=== PATIENT | male | born 1960 | race Caucasian/White ===

== ENCOUNTER 2018-11-22 10:43 | Emergency (ER) | payer OTHER ==
[~2018-11-22] VITALS: Ht 190.5 cm; Wt 99.3 kg
[2018-11-22 10:44] VITALS: BP 98/67
[2018-11-22] MEDS ORDERED: COREG6.25 MG PO (10:54)
[2018-11-22] MEDS ORDERED: SPIRONOLACTONE25 M1 PO (10:54)
[2018-11-22] MEDS ORDERED: ELIQUIS5 MG PO (10:54)
[2018-11-22] MEDS ORDERED: LISINOPRIL20 MG PO (10:55)
== END 2018-11-22 11:39 | disposition home or self-care (01) ==
LOC: ER 10:43
DX: S61.214A Laceration without foreign body of right ring finger without damage to nail, initial encounter (principal); W25.XXXA Contact with sharp glass, initial encounter; Y93.89 Activity, other specified; Y92.89 Other specified places as the place of occurrence of the external cause; Y99.8 Other external cause status

== ENCOUNTER → 2019-07-10 | Outpatient (CLI) | payer OTHER ==
[~2019-07-10] MED LIST: COREG6.25 MG PO; ELIQUIS5 MG PO; LISINOPRIL20 MG PO; SPIRONOLACTONE25 M1 PO
== END ==
LOC: SJCVCIMAG 09:14
DX: I42.0 Dilated cardiomyopathy (principal); I11.0 Hypertensive heart disease with heart failure; I50.20 Unspecified systolic (congestive) heart failure; I26.99 Other pulmonary embolism without acute cor pulmonale

== ENCOUNTER 2020-04-27 10:29 | Inpatient (IN) | payer OTHER ==
[~2020-04-27] VITALS: Ht 190.5 cm; Wt 66.4 kg
--- NOTE | ~2020-04-27 | EKG ---
[facility] Graham Braden [facility] [place] [address] ELECTROCARDIOGRAM REPORT Name: LOLA URIAS Room #: 217-P ADM IN M.R.#: [id number] Admission: 04/27/20 Attend Phys: Josue Coles MD Discharge: Date of : 60 Report #: [id number] THIS REPORT FOR: cc: Arnaud Barreto MD, Rene P. MD Epiphany, Epiphany MD ~ THIS REPORT FOR: //name// [facility] Test Date: 2020-04-27 Test Time: 23:17:13 Pat Name: LOLA URIAS Department: Room: 217 P Gender: M Blind Installer: WILLIAMS : 1960 Requested By: Josue Coles Order Number: [id number] MD: Measurements Intervals [place] Rate: 106 P: [place]: QRS: 43 QRSD: 161 T: -46 QT: 392 QTc: 521 Interpretive Statements Atrial flutter Left bundle branch block Compared to ECG 04/27/2020 11:07:43 Sinus tachycardia no longer present [email or web address] By: [id number] Epiphany Epiphany, /EPI
--- NOTE | ~2020-04-27 | EMS ---
[address] [address] EMS Patient Care Report Name: LOLA URIAS Room #: 217-P ADM IN M.R.#: [id number] Admission: 04/27/20 Attend Phys: Josue Coles MD Discharge: Date of : 60 Report #: [id number] THIS REPORT FOR: //name// Report Transmitted: 04/27/2020 23:55 EMS Care Summary [facility] MED-ACT Incident [id number] @ 04/27/2020 09:38 Incident Location [address] [place] [address] Patient LOLA URIAS Male, 60 Years 1960 Patient Address [address] [place] [address] Patient History Alcohol Abuse,Cardiomyopathy, Patient Allergies No known allergies, Patient Medications Eliquis, Sildenafil, Carvedilol, Chief Complaint Toe pain Disposition Transported No Lights/Tyrone Dispatch Reason Breathing Problem Transported To [facility] Narrative Medic 1152 responds to above address at a residential for C1 Breathing difficulty. Medic 1152 responds emergent without incident. Upon EMS arrival pt is found lying supine in bed being assessed and cared for [address] [address] EMS Patient Care Report Name: LOLA URIAS Room #: 217-P ADM IN Dominique#: [id number] Admission: 04/27/20 Attend Phys: Josue Coles MD Discharge: Date of : 60 Report #: [id number] by Pili BOURNE. Pt is alert and oriented x 4 with a GCS of 15. Pt's airway is patent and he speaks in full length sentences with no apparent difficulty. Pt's breathing appears unlabored and of adequate rate and tidal volume. Pt denies any SOA. Pt reports that it feels like his heart is beating faster then normal. Pt has strong radial pulses. Pt appears somewhat pale and has minor diaphorases noted. Pt reports that the reason 911 was called was due to an injury he sustained to the toes on his right foot 3 days ago when he accidently kicked a dresser. Pt reports, however, that he has a history of alcohol abuse and that that he has stopped drinking alcohol for the past 3 days. Pt reports that he feels like he is having tremors and his heart is beating really fast. Pt denies any loss of consciousness. Pt denies any chest pain or dizziness. Pt reports that he feels a little nauseated. Pt's VS are assessed with 12 lead ECG. Pt is assisted in transferring to stair chair. Stair chair to cot. Pt is assisted in transferring to cot and is secured in semi-fowlers position without incident. Cot to unit. VS reassessed. Zofran ODT is administered. Biocom report. IV is established. Pt is transferred to ER bed via own power. Report to RN in room. Pt care is transferred. Initial Vitals @09:47P: 144,R: 18,CO: 0,SpO2: 97,VT Suspected: false @09:50P: 138,R: 16,GCS: 15,SpO2: 99,VT Suspected: false @PTAP: 139,R: 18,BP: 135/100,Pain: 0/10,GCS: 15,SpO2: 98,Revised Trauma: 12, @10:23P: 147,R: 18,BP: 126/92,GCS: 15,SpO2: 97,Revised Trauma: 12, @10:15P: 146,R: 18,BP: 112/77,GCS: 15,SpO2: 96,Revised Trauma: 12, @10:05P: 138,R: 16,BP: 138/85,GCS: 15,Glucose: 103,SpO2: 98,Revised Trauma: 12, Assessments @09:48MENTAL:Time Oriented,Person Oriented,Event Oriented,Place Oriented,SKIN:Diaphoresis,Pale,HEENT:LUNG SOUNDS:General: Nausea,ABDOMEN:General: Nausea,PELVIS//GI:EXTREMITIES:Right Leg: Other,PULSE:NEURO:Tremors, Impression Injury of Foot Procedures @09:5012-Lead ECGResponse: UnchangedSucceeded@09:59Ondansetron - 4 Milligrams (mg) - OralResponse: Improved@10:15Saline Lock 10cc (18 ga) Site: Antecubital-LeftResponse: UnchangedSucceeded@10:03Surgical Mask on PatientResponse: Unchanged@09:48ALS AssessmentResponse: UnchangedSucceeded Timeline [address] [address] EMS Patient Care Report Name: ADONAYLOLA Room #: 217-P [facility] IN [facility]#: [id number] Admission: 04/27/20 Attend Phys: Josue Coles MD Discharge: Date of : 60 Report #: [id number] WRAPPER CASER,BP: 135/100 M,PULSE: 139,RR: 18 R,SPO2: 98 Ox,ETCO2: ,BG: ,PAIN: 0,GCS: 15, 09:35,Call Received 09:35,Psap Call 09:38,Dispatched 09:38,En Route 09:45,On Scene 09:47,At Patient 09:47,BP: / M,PULSE: 144,RR: 18 R,SPO2: 97 Ox,ETCO2: ,BG: ,PAIN: ,GCS: , 09:48,ALS Assessment,Response: UnchangedSucceeded, 09:50,12-Lead ECG,Response: UnchangedSucceeded, 09:50,BP: / M,PULSE: 138,RR: 16 R,SPO2: 99 Ox,ETCO2: ,BG: ,PAIN: ,GCS: 15, 09:59,Ondansetron - 4 Milligrams (mg) - Oral,Response: Improved 10:02,Depart Scene 10:03,Surgical Mask on Patient,Response: Unchanged 10:05,BP: 138/85 M,PULSE: 138,RR: 16 R,SPO2: 98 Ox,ETCO2: ,B,PAIN: ,GCS: 15, 10:15,Saline Lock 10cc 18 ga Site: Antecubital-Left,Response: UnchangedSucceeded, 10:15,BP: 112/77 M,PULSE: 146,RR: 18 R,SPO2: 96 Ox,ETCO2: ,BG: ,PAIN: ,GCS: 15, 10:23,At Destination 10:23,BP: 126/92 M,PULSE: 147,RR: 18 R,SPO2: 97 Ox,ETCO2: ,BG: ,PAIN: ,GCS: 15, 10:38,Call Closed Disclaimer v1.1 Copyright 2020 [employer] This EMS Care Summary contains data elements from the applicable legal record (which may be displayed differently). It is designed to provide pertinent information for the following purposes: continuity of care, clinical quality, and state data reporting. The complete legal record is available to ED staff and administrators of the receiving hospital in [facility]'s Patient Tracker. All data is provided "as is."
[2020-04-27 10:29] VITALS: BP 131/96
[2020-04-27 11:28] LABS: HEMATOCRIT 45.3 % (42.0-52.0); HEMOGLOBIN 15.4 gm/dL (14.0-18.0); MCH 37.1 pg (26.0-34.0); MCV 109.1 fL (80.0-100.0); RBC 4.15 mil/uL (4.50-6.00); RDW 14.6 % (10.5-14.5); WBC 5.3 thou/uL (4.0-11.0)
[2020-04-27 11:38] LABS: ANION GAP 12 mmol/L (7-16); BUN 14 mg/dL (7-18); CHLORIDE 101 mmol/L (98-107); CO2 25 mmol/L (21-32); CREATININE 1.4 mg/dL (0.7-1.3); GLUCOSE 112 mg/dL (74-106); POTASSIUM 4.6 mmol/L (3.5-5.1); SODIUM 138 mmol/L (136-145)
[2020-04-27 11:43] LABS: TROPONIN-I <0.06 ng/mL (<0.06)
[2020-04-27 12:53] LABS: ALBUMIN 3.7 g/dL (3.4-5.0); DIRECT BILIRUBIN 1.2 mg/dL (<0.1-0.2); TOTAL BILIRUBIN 2.6 mg/dL (0.2-1.0); TOTAL PROTEIN 7.3 g/dL (6.4-8.2)
[2020-04-27 13:49] LABS: ABSOLUTE NEUTROPHILS 4.1 thou/uL (1.4-8.2); ANISOCYTOSIS SLIGHT
[2020-04-27 13:50] LABS: PLATELET COUNT 85 thou/uL (150-400)
[2020-04-27 15:35] VITALS: BP 117/63
[2020-04-27 16:39] VITALS: BP 100/81
[2020-04-27 17:00] VITALS: BP 146/87
--- NOTE | 2020-04-27 18:33 | NUR ---
PT AADMITTED TO THE UNIT FROM THE ER. PT WITH BANDAGE TO R FOOT FROM # METATARSLES. PT STATES PAINFUL WHEN ATTMEPTS TO STAND ON IT. WHEN PATIENT # FOOT HE FEEL APPROX 5 TIMES SAID - PT FALL RISK - FLANAGAN NOT LIKE THE BED ALARM AND THREATENED TO LEAVE IF I DID NOT TURN IT OFF - EDUCATED PATIENT AGAIN ABOUT THE NEED FOR THE ALARM FOR SAFETY. HANANE DIET AND FLUIDS. USED URINAL - URINE ORANGE IN COLOR. PT WITH TREMORS DUE TO WITHDRAWAL. PT ORIENTED TO ROOM AND BEDSPACE. WATCHING TV AT THE PRESENT TIME.
[2020-04-27 19:55] VITALS: BP 136/88
[2020-04-28 00:13] VITALS: BP 127/97
--- NOTE | 2020-04-28 00:21 | NUR ---
PATIENT ASSESSED AND IS ALERT X4. SKIN WARM AND DRY. RESP EVEN AND UNLABORED. GETS CONFUSED AT TIMES. IS VERY SHAKY AND SWEATY ON FORHEAD. DENIES ANY PAIN. CIWA DONE AND IS 15. LOREZEPAM GIVEN PER PROTOCAL. TELE- SHOWS ST. DENIES ANY PAIN. OR SOA. DRESSING RIGHT FOOT. HAS FX METACARPELS. HAS HX OF ETOH. REMAINS VERY SHAKY. RESTING IN BETWEEN CARES. ALWAYS FIGITING AT EVERYTHING IN BED LIKE CALL LIGHT AND LOOKING FOR GLASSES WHEN THEY ARE ON HIS FACE. LOREZEPAM GIVEN NEEDED CIWA REMAINS ON 15. TELE- SHOWS AFLUTTER POR A-FIB EKG DONE AND CALLED AND IS IN A-FIB, NO NEW ORDERS AT THIS TIME. DR KRAMER CALLED AND WILL GEIVE HIM MED IF HR CONTINUES IN 120-130. HEART RATE GOES BACK DOWN TO 99. DENIES ANY CHEST PAIN. SKIN WARM AND DRY. CIWA DONE AT 0001 AMD REMAINS IN A-FIB. HR IN THE 100. DENIE ANY CHEST PAIN. HR UP TO 103 BUT STILL LOOKS LIKE A-FIB. CONT TO MONITOR. JUST GIVEN ANOTHER DOSE OF LORAZEPAM. REMIANS A 15 ON CIWA.
--- NOTE | 2020-04-28 01:01 | NUR ---
HEART RATE INCREASES BUT THEN RETURNS BACK DOWN TO 100. DENIES ANY PAIN.CONT TO MONITOR.
--- NOTE | 2020-04-28 01:05 | NUR ---
PATIENT ASSESSED AND IS ALERT X4. SKIN WARM AND DRY. RESP EVEN AND DRY. SKIN WARM AND DRY. 02 AT 5LNC. GETTING A TX FOR BREATHING. IV IN RIGHT AC. FLUSHES WELL. NEED ASSISTANCE TO BATHROOM BY 1 ASSIST. TAKES DIET WELL. NICATINE PATCH ON. HAS BEEN A VAPOR FOR THE LAST 4 YEARS. LUNGS COURSE BILATERALLY. TELE- SHOWS NSR WITH BBB. DENIES ANY CHEST PAIN OR SOA. GET SOA ON ACTIVITY. VOIDING WELL. DENIES ANY NEEDS AT PRESENT. CONT PLAN OF CARE.
--- NOTE | 2020-04-28 01:22 | NUR ---
PATIENT TELE SHOWS SA WAS LAYING ON HIS SIDE. DENIES ANY PAIN. CONT PALN OF CARE.
[2020-04-28 04:45] VITALS: BP 112/74
--- NOTE | 2020-04-28 04:50 | NUR ---
PATIENT RESTING AND SLEEPING WELL KNOW. TELE- REMIANS A-FIB. CALLED AROUND 0130 AND NO ORDERS RECEIVED. LAST DOSE OF ATIVAN WAS 0213. CIWA SCORE IS 11.
[2020-04-28 05:49] LABS: HEMATOCRIT 41.7 % (42.0-52.0); HEMOGLOBIN 14.2 gm/dL (14.0-18.0); MCH 37.5 pg (26.0-34.0); MCHC 34.1 g/dL (28.0-37.0); MCV 110.1 fL (80.0-100.0); RBC 3.78 mil/uL (4.50-6.00); RDW 14.5 % (10.5-14.5); WBC 4.3 thou/uL (4.0-11.0)
[2020-04-28 06:07] LABS: CALCIUM 7.8 mg/dL (8.5-10.1); POTASSIUM 3.8 mmol/L (3.5-5.1)
--- NOTE | 2020-04-28 07:02 | NUR ---
PATIENT SLEEPING WELL SINCE LAST DOSE OF LORAZEPAM. ZULY Walter 11.
[2020-04-28 08:16] VITALS: BP 141/105
[2020-04-28 11:50] VITALS: BP 137/97
[2020-04-28 16:25] VITALS: BP 165/98
--- NOTE | 2020-04-28 16:50 | NUR ---
ASSUMED CARE AT CHANGE OF SHIFT. PT ALERT X3 WITH FORGETFULNESS. CIWA ORDERS ACTIVATED. LORAZAPAM GIVEN PER CIWA ORDERS. NOTIFIED DR ESTEBAN OF AFIT WITH HEART RATE IN THE 120'S-130'S WITH TIMES OF RATE HIGH 150, WITH NEW ORDERS PLACED. CONTINUES ON FLUIDS. VOIDS PER URINAL. NO BM NOTED TODAY. BEDSIDE AT THIS TIME. PT AGREEABLE TO DC TO REHAB. CALL LIGHT AND PERSONAL ITEMS IN REACH. CALLS FOR ASSISTANCE.
[2020-04-28 19:45] VITALS: BP 139/112
[2020-04-29 00:41] VITALS: BP 115/97
[2020-04-29 04:45] VITALS: BP 113/85
[2020-04-29 05:12] LABS: HEMATOCRIT 39.6 % (42.0-52.0); HEMOGLOBIN 13.3 gm/dL (14.0-18.0); MCHC 33.5 g/dL (28.0-37.0); MCV 110.4 fL (80.0-100.0); RBC 3.59 mil/uL (4.50-6.00); RDW 14.5 % (10.5-14.5); WBC 3.7 thou/uL (4.0-11.0)
[2020-04-29 05:26] LABS: ALBUMIN 2.8 g/dL (3.4-5.0); CREATININE 1.1 mg/dL (0.7-1.3); POTASSIUM 3.8 mmol/L (3.5-5.1)
[2020-04-29 06:13] LABS: TOTAL BILIRUBIN 1.6 mg/dL (0.2-1.0); TOTAL PROTEIN 5.6 g/dL (6.4-8.2)
--- NOTE | 2020-04-29 07:36 | EKG ---
[facility] [place] [address] ELECTROCARDIOGRAM REPORT Name: LOLA URIAS Room #: 217-P ADM IN M.R.#: [id number] Admission: 04/27/20 Attend Phys: Josue Coles MD Discharge: Date of : 60 Report #: [id number] THIS REPORT FOR: cc: Arnaud Barreto MD, Rene P. MD Lundgren,Cal Schaeffer MD [facility] ~ THIS REPORT FOR: //name// [facility] ED Test Date: 2020-04-27 Test Time: 11:07:43 Pat Name: LOLA URIAS Department: Room: [facility] Gender: M Vp Product Marketing: venkata : 1960 Requested By: Kelvin Queen Order Number: [id number] MD: Cal Cruz Measurements Intervals [place] Rate: 143 P: 0 [place]: 42 QRS: -17 QRSD: 152 T: 146 QT: 347 QTc: 535 Interpretive Statements Sinus tachycardia Left bundle branch block No previous ECG available for comparison Electronically Signed On 04-29-2020 7:36:22 FLOOR TRADER by Cal Cruz [email or web address] <ELECTRONICALLY SIGNED> By: Cal Cruz MD, [facility] 04/29/20 0736 1107 1107 Cal Cruz MD, [facility] /EPI
--- NOTE | 2020-04-29 07:41 | EKG ---
[facility] [place] [address] ELECTROCARDIOGRAM REPORT Name: LOLA URIAS Room #: 217-P ADM IN M.R.#: [id number] Admission: 04/27/20 Attend Phys: Josue Coles MD Discharge: Date of : 60 Report #: [id number] THIS REPORT FOR: cc: Arnaud Barreto MD, Rene P. MD Lundgren,Cal Schaeffer MD [facility] ~ THIS REPORT FOR: //name// [facility] Test Date: 2020-04-27 Test Time: 23:15:48 Pat Name: LOLA URIAS Department: Room: 217 P Gender: M Senior Ui Designer: WILLIAMS : 1960 Requested By: Josue Coles Order Number: [id number] MD: Cal Cruz Measurements Intervals [place] Rate: 103 P: [place]: QRS: 63 QRSD: 154 T: 228 QT: 370 QTc: 485 Interpretive Statements Probable atrial flutter Ventricular premature complex Left bundle branch block Baseline wander in lead(s) V3 Compared to ECG 04/27/2020 11:07:43 Heart rate has slowed Electronically Signed On 04-29-2020 7:41:34 CLINICAL SCIENTIST by Cal Cruz [email or web address] <ELECTRONICALLY SIGNED> By: Cal Cruz MD, FACC 04/29/20 0741 2315 2315 Cal Cruz MD, FACC /EPI
--- NOTE | 2020-04-29 07:59 | NUR ---
PT LYING IN BED. VERY AGITATED AND EVENTUALLY COMBATIVE. ALSO INCONTINENT. CONFUSION BECAME WORSE WITH SOME HALLUCINATIONS. CIWA PROTOCOL FOLLOWED. FREQUENT OBSERVATION.
[2020-04-29 08:15] VITALS: BP 139/54
--- NOTE | 2020-04-29 08:43 | EKG ---
[facility] [place] [address] ELECTROCARDIOGRAM REPORT Name: LOLA URIAS Room #: 217-P ADM IN M.R.#: [id number] Admission: 04/27/20 Attend Phys: Josue Coles MD Discharge: Date of : 60 Report #: [id number] THIS REPORT FOR: cc: Arnaud Barreto MD, Rene P. MD Santiago, Patrick MD [facility] ~ THIS REPORT FOR: //name// [facility] Test Date: 2020-04-29 Test Time: 08:10:20 Pat Name: LOLA URIAS Department: Room: 217 P Gender: M Drive Man: MARCO : 1960 Requested By: Josue Coles Order Number: [id number] MD: [place] Huggins Measurements Intervals [place] Rate: 101 P: [place]: QRS: 73 QRSD: 144 T: -59 QT: 422 QTc: 548 Interpretive Statements Atrial fibrillation IVCD, consider atypical LBBB Baseline wander in lead(s) V1 Compared to ECG 04/27/2020 23:17:13 No significant changes Electronically Signed On 04-29-2020 8:42:54 PRINCIPAL SOFTWARE ENGINEER by Lake Huggins [email or web address] <ELECTRONICALLY SIGNED> By: Lake Huggins MD, FACC 04/29/2042 9 9 Lake Huggins MD, FACC /EPI
[2020-04-29 12:00] VITALS: BP 147/111
--- NOTE | 2020-04-29 14:35 | 2DMMODE ---
[address] [address] 2 D/M-MODE ECHOCARDIOGRAM Name: LOLA URIAS Room #: 217-P ADM IN M.R.#: [id number] Admission: 04/27/20 Attend Phys: Josue Coles MD Discharge: Date of : 60 Report #: [id number] THIS REPORT FOR: cc: Arnaud Barreto MD, Rene P. MD Santiago, Patrick MD [facility] ~ APPROVED REPORT Study performed: 04/29/2020 13:35:24 EXAM: Comprehensive 2D, Doppler, and color-flow Echocardiogram Patient Location: Bedside Room #: 217 Status: routine BSA: 2.33 HR: 81 bpm BP: 139/54 mmHg Rhythm: Atrial Fibrillation Other Information Study Quality: Good Indications Congestive Heart Failure Atrial Fibrillation CAD Cardiomyopathy Hypertension/HDD Volumes Left Atrial Volume (Systole) LA ESV Index: 21.00 mL/m2 Left Ventricle Left ventricle is dilated. There is global hypokinesis of the left ventricle. There is normal left ventricular wall thickness. Left ventricular systolic function is mildly decreased. LVEF is 40-45%. This study is not technically sufficient to allow evaluation of the LV diastolic function due to atrial fibrillation. Right Ventricle The right ventricle is normal size. The right ventricular systolic function is normal. [address] [address] 2 D/M-MODE ECHOCARDIOGRAM Name: LOLA URIAS Room #: 217-P ADM IN ..#: [id number] Admission: 04/27/20 Attend Phys: Josue Coles MD Discharge: Date of : 60 Report #: [id number] [place] The left atrium size is normal. The right atrium size is normal. Aortic Valve The aortic valve is normal in structure. Trace aortic regurgitation. There is no aortic valvular stenosis. Mitral Valve The mitral valve is normal in structure. There is no mitral valve regurgitation noted. No evidence of mitral valve stenosis. Tricuspid Valve The tricuspid valve is normal in structure. There is no tricuspid valve regurgitation noted. Pulmonic Valve The pulmonary valve is normal in structure. There is no pulmonic valvular regurgitation. Great Vessels The aortic root is normal in size. IVC is normal in size and collapses >50% with inspiration. Pericardium There is no pericardial effusion. <Conclusion> Atrial fibrillation during the study Normal left ventricular size and wall thickness Mild global hypokinesis, ejection fraction 40-45% Unable to assess diastolic function due to atrial fibrillation Normal right ventricular size and function Normal atrial size Normal mitral and aortic valve structure and function No evidence of tricuspid valve insufficiency No pericardial effusion <ELECTRONICALLY SIGNED> By: Lake Huggins MD, [facility] 04/29/20 1435 1435 1435 Lake Huggins MD, FACC /INF
[2020-04-29 15:55] VITALS: BP 152/114
--- NOTE | 2020-04-29 19:46 | NUR ---
RECEIVED PT'S CARE AROUND 0735; PT. ON BED; RESTING WITH EYES CLOSED; EQUAL CHEST RISING; NOTICED AFIB ON THE MONITOR WITH RVR; EKG ORDERED PER PROTOCOL; PHYSICIAN NOTIFIED; ORDERS ON PLACED; CARDIZEM BOLUS AND GTT STARTED AT 5ML/H; HR BELOW 100S THROUGH THE DAY; POOR APPETITE THROUGH THE DAY; ENCOURAGE EATING; DURING AM ASSESSMENT NOTICED GLASSES OVER BED; PUT OVER TABLE; AT LUNCH PT. NOT ABLE TO SEE; PUT GLASSES ON; DURING ROUNDING NOTICED NO GLASSES ON; PT. REQUESTED GLASSES; GLASSES NOT FOUND; PER DIETARY NO FOUND OVER TRAY; NOTIFIED DURING VISIT; INCONTINENT; BED CHANGED TWICE THROUGH THE DAY; ASSESSMENT CHARGED; FOLLOWING POC; PASSED ON REPORT;
[2020-04-29 20:16] VITALS: BP 151/119
[2020-04-30 05:08] LABS: HEMATOCRIT 40.8 % (42.0-52.0); HEMOGLOBIN 13.8 gm/dL (14.0-18.0); MCHC 33.7 g/dL (28.0-37.0); MCV 109.6 fL (80.0-100.0); RBC 3.72 mil/uL (4.50-6.00); RDW 14.3 % (10.5-14.5); WBC 4.9 thou/uL (4.0-11.0)
[2020-04-30 05:18] LABS: POTASSIUM 3.5 mmol/L (3.5-5.1)
[2020-04-30 06:12] VITALS: BP 156/121
[2020-04-30 09:23] VITALS: BP 141/106
[2020-04-30 11:11] VITALS: BP 153/107
[2020-04-30 15:00] VITALS: BP 167/109
--- NOTE | 2020-04-30 17:23 | NUR ---
Patient admits with ETOH withdraw. He is confused and fall risk. Sp with she reports she works multimedia developer and provides health insurance. She reports patient will tell people he working on projects but he is not. He lost his job a year ago due to DUI. She reports live in home with flight of steps. reports his motor control has been getting weaker. She does not know if from neuropathy or ETOH. He has been through withdraw in past but never this extreme. Only ETOH tx he has done was [facility] for 5-6 weeks. She reports he has to go to some ETOH rehab he is doing so poorly. She is requesting health care team strongly encourage the treatment. Discussed therapy evals in process and may need medical rehab prior to substance treatment. tearful during discussion. She wants to be updated frequently.
[2020-04-30 21:33] VITALS: BP 155/116
--- NOTE | 2020-05-01 02:36 | NUR ---
ASSUMED CARE OF PATIENT AT 1900. PATIENT RESTLESS THROUGH NIGHT. ATTEMPTING TO GET OUT OF BED, PULLING ON CARDIAC LEADS, AND REMOVING HOPSITAL GOWN. MOST RECENT CIWA SCORE A 9. PATIENT HAD EPISODE OF AFIB RVR AND CARDIZEM DRIP INCREASED. PATIENT HEART RATE CURRENTLY 96 WITH CARDIZEM AT 15. PATIENT DOES NOT APPEAR TO BE PROGRESSING WELL TOWARD CARE PLAN GOALS.
[2020-05-01 04:45] VITALS: BP 156/117
[2020-05-01 06:08] LABS: HEMATOCRIT 39.2 % (42.0-52.0); HEMOGLOBIN 13.3 gm/dL (14.0-18.0); MCH 37.4 pg (26.0-34.0); MCHC 33.9 g/dL (28.0-37.0); MCV 110.2 fL (80.0-100.0); RBC 3.56 mil/uL (4.50-6.00); RDW 14.1 % (10.5-14.5); WBC 4.9 thou/uL (4.0-11.0)
[2020-05-01 06:17] LABS: CALCIUM 8.7 mg/dL (8.5-10.1); CREATININE 0.9 mg/dL (0.7-1.3); POTASSIUM 3.2 mmol/L (3.5-5.1)
[2020-05-01 09:14] VITALS: BP 165/112
[2020-05-01 10:35] VITALS: BP 166/120
[2020-05-01 16:00] VITALS: BP 151/106
--- NOTE | 2020-05-01 18:59 | NUR ---
PT ALERT AND ORIENTED TIMES THREE WITH PERIODS OF CONFUSION. PT IMPLUSIVE THIS SHIFT BUT REDIRECTABLE. CARDIZEM GTT AND IVF INFUSING PER ORDER. PT TOLERATES MEDS AND MEALS. AT BEDSIDE THIS AFTERNOON. WILL CONTINUE TO MONITOR.
[2020-05-01 20:45] VITALS: BP 154/104
--- NOTE | 2020-05-02 04:40 | NUR ---
PT ALERT TO SELF, IMPULSIVE, AGITATED, ATIVAN GIVEN PER PROTOCOL, INCONT OF URINE SEVERAL TIMES CLEANED AND REPOSITIONED NEEDED, VSS, HR ST LOW 100'S WITH 1AVB, WILL CON'T TO MONITOR PER PPOC.
[2020-05-02 04:45] VITALS: BP 147/108
[2020-05-02 06:34] LABS: CALCIUM 8.9 mg/dL (8.5-10.1); MAGNESIUM 1.7 mg/dL (1.8-2.4); POTASSIUM 3.7 mmol/L (3.5-5.1)
[2020-05-02 08:30] VITALS: BP 145/112
--- NOTE | 2020-05-02 10:29 | NUR ---
PT CARE ASSUMED AT 0700. A&Ox2 TO SELF AND TIME. PT THINKS HE IS AT A RESTAURANT BUT OTHERWISE CALMLY RESTING WITH MILD TREMORS AND NO AGITATION. P/RT ON BOARD. CIWA PROTOCOL IN PLACE SCORED A 7 AT 0800. INCONTINENT EPISODES. IV PATENT WITH NO REDNESS OR EDMA, SALINE LOCKED WITH IV ANTIBIOTICS INFUSING. CONSULT FOR 5N NEEDED. FALL PROTOCOL IN PLACE. CALL LIGHT IN REACH. NSR ON THE MONITOR. R.FOOT ELEVATED ON PILLOW, WITH MILD SWELLING AND BRUISING NOTED. WILL CONTINUE TO MONITOR.
[2020-05-02 12:00] VITALS: BP 1198/86
--- NOTE | 2020-05-02 15:11 | NUR ---
PT/OT working with the pt and [facility] evaluating. [facility] liason to check if pt's ins plan is in network with our acute rehab unit. CIWA down to 7 today. pt remains on cardezim gtt. Message left for Phyllis regarding the above dc planning efforts. Will follow.
[2020-05-02 16:30] VITALS: BP 134/94
--- NOTE | 2020-05-02 16:41 | NUR ---
IT SERVICE MANAGER CALLED INSURANCE AND CONFIRMED [facility] IN NETWORK AND THAT PATIENT HAD IN PATIENT REHAB BENEFITS. AUTHORIZATION REQUESTED AND CLINICAL INFORMATION SENT TO PATIENT'S INSURANCE COMPANY. WILL AWAIT RESPONSE. SOCAIL WORKER INFORMED.
[2020-05-02 19:30] VITALS: BP 131/90
[2020-05-03] VITALS (11 sets, daily range): BP systolic 108–153; BP diastolic 10–109
--- NOTE | 2020-05-03 02:40 | NUR ---
ASSUMED CARE OF PATIENT AT 1900. ADMINISTERED PRN ATIVAN ONE TIME THROUGH NIGHT DUE TO AGITATION. PATIENT APPEARED TO SLEEP THE MAJORITY OF NIGHT HOWEVER DID HAVE EPISODES OF RESTLESSNESS DURING WHICH HE PULLED OFF LEADS AND CLOTHING. IMPROVEMENT NOTED FROM PREVIOUS SHIFTS CARING FOR PATIENT
[2020-05-03] MEDS ORDERED: COREG6.25 MG PO (10:01)
[2020-05-03] MEDS ORDERED: LISINOPRIL40 MG PO (10:01)
[2020-05-03] MEDS ORDERED: VITAMIN B-1100 M2 PO (10:02)
[2020-05-03] MEDS ORDERED: PRENATAL PO (10:02)
--- NOTE | 2020-05-03 11:55 | NUR ---
Pt cleared for dc to [facility] today and they have recieved ins auth. All parties updated.
[2020-05-03 13:02] LABS: FOLIC ACID 16.4 ng/mL (8.6-58.9)
--- NOTE | 2020-05-03 17:55 | NUR ---
DC to rehab held due CT results noting bilat bleed with shift. Acute transfer request rec'd and calls placed to [facility]. Facesheet and clinical faxed and imaging uploaded to cloud. Call back [facility] from Dr[facility]. Their hospitalist Dr. Mary and Neuro[facility] Dr. Escobar are the accepting. He has talked with the pt and his spouse at bedside and they are agreeable to the transfer. [facility] form and [facility] transfer form are on the chart once a bed is availble. Nursing to call report and chart copy is ready to be sent with the pt.
--- NOTE | 2020-05-03 18:36 | NUR ---
PT HAD DISCHARGE ORDERS THIS AFTERNOON TO [facility]. АНДРЕЙ, THE REHAB RD LAB TECHNICIAN CAME TO THIS RN AND STATED THAT SHE HAD ORDERED A CT AND THAT THEY COULD EITHER DO IT BEFORE THE PT CAME TO REHAB OR AFTER IF WE NEEDED A BED. REHAB LIASON CALLED TO GO OVER PT ORDERS THEN REED MAN CALLED, REPORT GIVEN TO HER. SHE STATED THAT SHE HAD DISCUSSED WITH АНДРЕЙ RD LAB TECHNICIAN AND THEY DECIDED TO HAVE PT GO TO CT FROM ROOM [address] DONE WE COULD DISCHARGE PT AND THEY WOULD ADMIT HIM TO ROOM 510. THIS RN WENT TO TAKE PT BELONGINGS UP TO REHAB, REED MAN STATED TO THIS RN TO HOLD PT BED HE MAY BE COMING BACK. REHAB THEN CALLED AND STATED PT WAS COMING BACK TO ROOM 217 AND ADMISSION WAS REINSTATED TO ROOM 217. THIS RN PAGED DR GALLO REGARDING CT FINDINGS. STAT MRI AND NEURO CONSULT CALLED. DR GALLO ASKED THIS RN TO HAVE SW INITIATE TRANSFER TO ANOTHER FACILITY FOR NEUROSURGERY. PT AND NOTIFIED OF CT FINDINGS BY DR GALLO. CARDENE GTT WAS STARTED PER DR GALLO TO KEEP PT SBP <140. [facility] CALLED AND SPOKE WITH DR GALLO, THEY ACCEPTED PT. PT TO GO TO NEURO ICU BED 6. REPORT CALLED TO [facility]. AND PT NOTIFIED OF TRANSFER. PT ON FREQUENT VITAL SIGNS.
[2020-05-03 18:44] LABS: PROTIME 10.4 Seconds (9.3-11.4)
--- NOTE | 2020-05-03 19:50 | NUR ---
PT DISCHARGED VIA EMS, BELONGINGS SENT WITH PT. PT AWARE. TRANSFER CENTER CALLED
== END 2020-05-03 19:52 | disposition short-term general hospital (02) | DRG 64 ==
LOC: ER 10:29 → EROBS 14:35 → 2N 14:35
PROVIDERS: Emergency Medicine; Internal Medicine; Nurse Practitioner; Nurse Practitioner Family; ADMIT Hospitalist; ATTEND Hospitalist
PROC: 2W3SX1Z Immobilization of Right Foot using Splint (ICD-10-PCS; principal; 2020-04-27)
DX: I62.01 Nontraumatic acute subdural hemorrhage (principal); G93.41 Metabolic encephalopathy; F10.139 Alcohol abuse with withdrawal, unspecified; I42.9 Cardiomyopathy, unspecified; I48.20 Chronic atrial fibrillation, unspecified; I50.22 Chronic systolic (congestive) heart failure; E44.0 Moderate protein-calorie malnutrition; S92.321A Displaced fracture of second metatarsal bone, right foot, initial encounter for closed fracture; I48.0 Paroxysmal atrial fibrillation; S92.331A Displaced fracture of third metatarsal bone, right foot, initial encounter for closed fracture; I11.0 Hypertensive heart disease with heart failure; S92.341A Displaced fracture of fourth metatarsal bone, right foot, initial encounter for closed fracture; I25.10 Atherosclerotic heart disease of native coronary artery without angina pectoris; W22.8XXA Striking against or struck by other objects, initial encounter; I07.1 Rheumatic tricuspid insufficiency; I50.9 Heart failure, unspecified; E87.6 Hypokalemia; E83.42 Hypomagnesemia; G62.9 Polyneuropathy, unspecified; Z86.711 Personal history of pulmonary embolism; Z79.899 Other long term (current) drug therapy; Y93.89 Activity, other specified; Y92.89 Other specified places as the place of occurrence of the external cause; Y99.8 Other external cause status; I25.2 Old myocardial infarction
CPT/HCPCS: 10081

== ENCOUNTER → 2020-07-17 | Outpatient (CLI) | payer OTHER ==
[~2020-07-17] MED LIST changes: +LISINOPRIL40 MG PO; +PRENATAL PO; +VITAMIN B-1100 M2 PO
== END ==
LOC: SJCVCIMAG 08:51
PROVIDERS: ATTEND Internal Medicine
DX: I08.3 Combined rheumatic disorders of mitral, aortic and tricuspid valves (principal); I50.9 Heart failure, unspecified; I42.9 Cardiomyopathy, unspecified; I26.99 Other pulmonary embolism without acute cor pulmonale

== ENCOUNTER → 2021-01-22 | Outpatient (CLI) | payer OTHER | LOC: SJCVCIMAG 07:58 | PROVIDERS: ATTEND Internal Medicine | DX: I08.1 Rheumatic disorders of both mitral and tricuspid valves (principal); I50.9 Heart failure, unspecified; I26.99 Other pulmonary embolism without acute cor pulmonale; I42.9 Cardiomyopathy, unspecified ==